=== PATIENT | male | born 1965 | race Caucasian/White ===

== ENCOUNTER → 2023-04-04 12:21 | Outpatient (BNVA) | payer OTHER, SELFPAY | PROVIDERS: Visit Provider Internal Medicine | DX: R07.9 Chest pain, unspecified (principal); R00.1 Bradycardia, unspecified | CPT/HCPCS: 93005 ==

== ENCOUNTER 2023-04-22 10:56 | Outpatient (CLI) | payer OTHER, SELFPAY ==
--- NOTE | 2023-04-22 11:00 | USCV_ITS ---
Maury Brito Age: 58 Gender: M : 1965 Exam Date: 04/22/2023 11:12 Ordering Phys: Truong Eric M.D ([email or web address]) Technologist: BUDDY Exam Location: [facility] – [place] Indication: BP: / HR: 53 Rhythm: PACED Technical Quality: Adequate MEASUREMENTS (Male / Female) Normal Values 2D ECHO LV Diastolic Diameter PLAX 4.1 cm 4.2 - 5.9 / 3.9 - 5.3 cm LV Systolic Diameter PLAX 2.7 cm LV Chamber Size 3.2 cm IVS Diastolic Thickness 1.1 cm 0.6 - 1.0 / 0.6 - 0.9 cm IVS Systolic Thickness 1.1 cm LVPW Diastolic Thickness 1.0 cm 0.6 - 1.0 / 0.6 - 0.9 cm LVPW Systolic Thickness 1.4 cm RV Chamber Size 3.6 cm LVOT Diameter 2.0 cm LV Ejection Fraction 2D Teich 63.4 % LV Ejection Fraction MOD 2C 63.6 % LV Ejection Fraction 2C AL 62.4 % LA Diameter 3.2 cm LA Width 2.4 cm LA Height 3.7 cm RA Width 3.4 cm RA Height 4.7 cm Aorta at Sinotubular Diameter 3.6 cm IVC Diameter 1.9 cm M-MODE Aortic Annulus Diameter 3.0 cm LA Ao Ratio MM 1.3 MV E Point Septal Separation 0.4 cm DOPPLER AV Peak Velocity 146.0 cm/s LVOT Peak Velocity 104.0 cm/s AV Area Cont Eq vti 2.3 cm squared AV Area Cont Eq pk 2.3 cm squared MV Area PHT 2.4 cm squared Mitral E to A Ratio 1.6 MV E' Velocity 37.5 cm/s Mitral E to MV E' Ratio 7.2 Mitral E to LV E' Lateral Ratio 7.5 Mitral E to LV E' Septal Ratio 7.1 TR Peak Velocity 225.0 cm/s TR Peak Gradient 20.3 mmHg TR Mean Velocity 177.6 cm/s TR Mean Gradient 13.5 mmHg TR Velocity Time Integral 74.3 cm TV Peak E Velocity 53.0 cm/s Right Atrial Pressure 3.0 mmHg Pulmonary Artery Systolic Pressu 23.3 mmHg PV Peak Velocity 95.0 cm/s RV Acceleration Time 0.1 s RV Ejection Time 0.3 s RV AcT/ET 0.2 FINDINGS Left Ventricle Normal left ventricular size. LV systolic function is normal with EF of 50 to 55%. No regional wall motion abnormalities are seen. Right Ventricle The right ventricle is normal in size and function. Right Atrium The right atrium is normal in size. Left Atrium The left atrium is normal in size. Mitral Valve Structurally normal mitral valve. No significant regurgitation Aortic Valve Structurally normal aortic valve. No significant aortic stenosis. There is no aortic regurgitation. Tricuspid Valve Trace tricuspid regurgitation. Pulmonary artery systolic pressure is normal Pulmonic Valve Not well-visualized Pericardium Normal pericardium without effusion. Aorta Normal ascending aorta dimension. IVC Not well visualized CONCLUSIONS LV systolic function is normal with EF of 50 to 55%. Trace tricuspid regurgitation. No comparison studies are available. Truong Eric MD (Electronically Signed) Final Date: 06 May 2023 15:21 S
== END 2023-04-22 10:57 | disposition home or self-care (01) ==
PROVIDERS: PCP Internal Medicine; Visit Provider Internal Medicine
DX: R07.9 Chest pain, unspecified (principal); R06.02 Shortness of breath
CPT/HCPCS: 93306

== ENCOUNTER 2024-08-23 04:40 | Emergency (ER) | payer OTHER, SELFPAY ==
[2024-08-23 04:42] VITALS: BP 145/74; PULSE 60; RESP 18; TEMP 36.5; O2SAT 98; BMI 30.6
--- NOTE | 2024-08-23 04:53 | ED_ITS ---
HPI - Back Pain/Injury General: Chief Complaint: Back Pain/Injury Stated Complaint: Back Pain Time Seen by Provider: 08/23/24 04:47 History of Present Illness: 9-year-old man presents emergency room w ith low back pain. He says he bent over to pick something up and his back suddenly locked up . He had this happen in the past but not this bad. No trauma. No saddle numbness, no urinary retention or incontinence, no focal motor deficit, no sensory deficit. no recent fever. no cough. no shortness of breath. no chest pain. no abdominal pain. no nausea or vomiting. no dysuria. no altered mental status. no edema. Related Data Home Medications Medication Instructions Recorded Confirmed Multiple Vitamins-Minerals PO 04/04/23 07/09/24 Multivitamin PO 04/04/23 07/09/24 Probiotic Product PO 04/04/23 07/09/24 cholecalciferol (vitamin D3) 25 25 mcg PO DAILY 04/04/23 07/09/24 mcg (1,000 unit) capsule cyanocobalamin (vitamin B-12) 1,000 mcg PO DAILY 04/04/23 07/09/24 1,000 mcg capsule fish oil PO 04/04/23 07/09/24 Previous Rx's Medication Instructions Recorded cyclobenzaprine 10 mg tablet 10 mg PO Q8H PRN muscle spasm #20 08/23/24 tabs dexamethasone 6 mg tablet 6 mg PO DAILY 5 days #5 tabs 08/23/24 diclofenac sodium 50 mg 50 mg PO BID PRN pain #14 tabs 08/23/24 tablet,delayed release hydrocodone 5 mg-acetaminophen 325 1 tab PO Q8H PRN pain #14 tabs 08/23/24 mg tablet polyethylene glycol 3350 17 17 g PO DAILY #510 grams 08/23/24 gram/dose oral powder (Miralax) Allergies Allergy/AdvReac Type Severity Reaction Status Date / Time No Known Allergies Allergy Verified 08/23/24 04:48 Review of Systems Narrative: Constitutional symptoms: Negative except as documented in HPI. Skin symptoms: Negative except as documented in HPI. Eye symptoms: Negative except as documented in HPI. ENMT symptoms: Negative except as documented in HPI. Respiratory symptoms: Negative except as documented in HPI. Cardiovascular symptoms: Negative except as documented in HPI. Gastrointestinal symptoms: Negative except as documented in HPI. Genitourinary symptoms: Negative except as documented in HPI. Musculoskeletal symptoms: Negative except as documented in HPI. Neurologic symptoms: Negative except as documented in HPI. Psychiatric symptoms: Negative except as documented in HPI. Endocrine symptoms: Negative except as documented in HPI. [facility] ED PFSH: Surgical History History of permanent cardiac pacemaker placement Social History Smoking and tobacco/nicotine status: former use of tobacco/nicotine (quit in 2014) Physical Exam Narrative: EXAM NARRATIVE: General: Alert, no acute distress. Head: Normocephalic Neck: Trachea midline Eye: Extraocular movements are intact. Ears, nose, mouth and throat: Oral mucosa moist Respiratory: Respirations are non-labored Musculoskeletal: Normal ROM Back: no step off, no focal tenderness, some paraspinal muscle tenderness Neurological: Alert and oriented to person, place, time, and situation, No focal neurological deficit observed. Psychiatric: Cooperative, appropriate mood & affect. Course Vital Signs: Vital signs: Vital Signs Temperature 97.7 F 08/23/24 04:42 Pulse Rate 60 08/23/24 04:42 Respiratory Rate 18 08/23/24 04:42 Blood Pressure 145/74 08/23/24 04:42 Pulse Oximetry 98 08/23/24 04:42 Oxygen Delivery Me thod Room Air 08/23/24 04:42 MDM - Back Pain/Injury Medical Decision Making Assessment and plan: Lumbar radiculopathy Lumbar strain - IV Dilaudid, IV Norflex, IV Toradol and IV Decadron in the emergency room. - Discharged home - Discussed plan with patient. Answered any questions. - Evaluation and treatment of this problem were appropriate in the emergency setting. No radiology studies performed this visit Discharge Plan Discharge Patient Disposition: Home Clinical Impression: Lumbar radiculopathy, Strain of lumbar region Condition: Stable Prescriptions: New cyclobenzaprine 10 mg tablet 10 mg PO Q8H PRN (Reason: muscle spasm) Qty: 20 0RF hydrocodone-acetaminophen 5-325 mg tablet 1 tab PO Q8H PRN (Reason: pain) Qty: 14 0RF Rx Instructions: Take 1/2 to 1 tab every 8 hours as needed for pain dexamethasone 6 mg tablet 6 mg PO DAILY 5 Days Qty: 5 0RF diclofenac sodium 50 mg tablet,delayed release (DR/EC) 50 mg PO BID PRN (Reason: pain) Qty: 14 0RF polyethylene glycol 3350 [Miralax] 17 gram/dose powder 17 g PO DAILY Qty: 510 0RF Rx Instructions: Take 1 scoop daily while taking pain medications. No Action cholecalciferol (vitamin D3) 25 mcg (1,000 unit) capsule 25 mcg PO DAILY cyanocobalamin (vitamin B-12) 1,000 mcg capsule 1,000 mcg PO DAILY Multivitamin PO Multiple Vitamins-Minerals PO fish oil PO Probiotic Product PO Discharge Orders: Discharge ED (Routine); Ordered 08/23/24 Ordered By: Bere Shea Referrals: Truong Eric M.D [Primary Care Provider] - Discharge Diet: Usual diet Discharge Activity: Increase activity as tolerated Patient Instructions: Lumbar Radiculopathy (ED), Opioid Safety, Pain Management Activity Restrictions/Additional Instructions: Thank you for choosing [facility] for your healthcare needs today. Please realize this is an emergency room and that we are providing you with a medical screening exam and this may not be complete and all inclusive of all the testing and or work up that you may need to determine your ailment or severity of your illness. You have been screened and evaluated and felt safe for discharge. Health conditions do change or evolve sometimes and as such it is important that you follow up with your Primary Doctor to be re checked, 3-5 days is a general good time frame for follow up. You are always welcome to return to the ED for re assessment if your symptoms are worsening or you have new concerns Coding Level of Care Code ED Special Effects Person for Roland Hernandez
[2024-08-23] MEDS: dexamethasone 10 mg/mL INJ IVP (05:07)
[2024-08-23] MEDS: ketorolac 30 mg/mL INJ IVP (05:08)
[2024-08-23] MEDS: orphenadrine 30 mg/mL Inj 2 mL 60 MG IVP (05:08)
[2024-08-23] MEDS: HYDROmorphone 1 mg/mL INJ 1 mL IVP (05:08)
[2024-08-23 05:09] VITALS: BP 145/74; PULSE 53; RESP 18; O2SAT 98
[2024-08-23 05:43] VITALS: BP 122/79; PULSE 56; RESP 16; O2SAT 99
== END 2024-08-23 06:34 | disposition home or self-care (01) ==
PROVIDERS: Emergency Provider Emergency Medicine; PCP Internal Medicine
DX: M54.16 Radiculopathy, lumbar region (principal); S39.012A Strain of muscle, fascia and tendon of lower back, initial encounter; Z87.891 Personal history of nicotine dependence; X58.XXXA Exposure to other specified factors, initial encounter
CPT/HCPCS: 96374; 96375; 99284; J1100; J1171; J1885; J2360